=== PATIENT | female | born 1995 | race Caucasian/White ===

== ENCOUNTER 2020-01-05 15:38 | Emergency (ER) | payer OTHER ==
[~2020-01-05] VITALS: Ht 175.3 cm; Wt 81.7 kg
[2020-01-05 15:53] LABS: URINE BILIRUBIN NEGATIVE (Negative); URINE BLOOD TRACE (Negative); URINE CLARITY CLEAR; URINE COLOR YELLOW; URINE GLUCOSE-RANDOM NEGATIVE (Negative); URINE KETONES NEGATIVE (Negative); URINE LEUKOCYTES-REFLEX NEGATIVE (Negative); URINE NITRITE-REFLEX NEGATIVE (Negative); URINE PROTEIN NEGATIVE (Negative); URINE SPECIFIC GRAVITY 1.025 (1.005-1.030); URINE UROBILINOGEN 0.2 E.U./dl (0.2-1.0)
[2020-01-05] MEDS ORDERED: NORLYDA0.35 MG PO (15:54)
[2020-01-05] MEDS ORDERED: FLAGYL500 M1 PO (18:45)
[2020-01-05] MEDS ORDERED: NAPROSYN500 MG PO (18:45)
[2020-01-05] MEDS ORDERED: NORCO 5-325 TA1 EAC2 PO (18:45)
[2020-01-05 19:12] VITALS: BP 124/70
== END 2020-01-05 19:13 | disposition home or self-care (01) ==
LOC: M.ERS 15:38
PROVIDERS: Physician Assistant
DX: N83.291 Other ovarian cyst, right side (principal); N89.8 Other specified noninflammatory disorders of vagina; Z98.890 Other specified postprocedural states

== ENCOUNTER 2020-12-29 09:33 | Emergency (ER) | payer OTHER ==
[~2020-12-29] VITALS: Ht 175.3 cm; Wt 81.7 kg
[~2020-12-29 09:33] MED LIST: FLAGYL500 M1 PO; NAPROSYN500 MG PO; NORCO 5-325 TA1 EAC2 PO; NORLYDA0.35 MG PO
[2020-12-29] MEDS ORDERED: LEXAPRO 10 MG T10 MG PO (09:44)
[2020-12-29] MEDS ORDERED: LO LOESTRIN FE1 EACH PO (09:44)
[2020-12-29 10:58] VITALS: BP 150/93
== END 2020-12-29 10:59 | disposition home or self-care (01) ==
LOC: M.ERS 09:33
DX: S93.692A Other sprain of left foot, initial encounter (principal); Z98.890 Other specified postprocedural states; W17.89XA Other fall from one level to another, initial encounter; Y93.39 Activity, other involving climbing, rappelling and jumping off; Y92.89 Other specified places as the place of occurrence of the external cause; Y99.8 Other external cause status